=== PATIENT | female | born 1960 | race Caucasian/White ===

== ENCOUNTER 2019-08-09 13:58 | Inpatient (IN) ==
--- NOTE | 2019-08-09 14:20 | PROVIDER DOCUMENTATION ---
HPI-General Adult - General Chief Complaint: SEPSIS ALERT - D Stated Complaint: DR ENRIQUEZ REFERRAL Time Seen by Provider: 08/09/19 14:06 Source: patient Allergies/Adverse Reactions: Patient Allergies Allergy/AdvReac Type Severity Reaction Status Date / Time glyburide [From Glucovance] Allergy Unknown Verified 08/09/19 14:43 lamotrigine [From Lamictal] Allergy Unknown Verified 08/09/19 14:43 levofloxacin [From Levaquin] Allergy Unknown Verified 08/09/19 14:43 codeine AdvReac DIZZINESS Verified 05/15/17 12:53 duloxetine [From Cymbalta] AdvReac CONSTIPATIO Verified 08/09/19 14:43 N gabapentin AdvReac Unknown Verified 08/09/19 14:43 metformin AdvReac NAUSEA Verified 05/15/17 12:53 Home Medications: Home Medication List Medication Instructions Recorded Confirmed Last Taken Type Albuterol Sulfate Inhaler 1 dose INH Q4H PRN PRN 08/09/19 08/09/19 08/09/19 History [Ventolin Hfa] Brexpiprazole [Rexulti] 1 tab PO DAILY 08/09/19 08/09/19 08/09/19 History Crisaborole [Eucrisa] 1 applic TD PRN PRN 08/09/19 08/09/19 Unknown History Dextroamphetamine/Amphetamine 1 tab PO BID 08/09/19 08/09/19 08/09/19 History [Adderall 30 mg Tablet] Fluticasone/Vilanterol [Breo 1 puff INH DAILY 08/09/19 08/09/19 08/09/19 History Ellipta 200-25 Mcg INH] Levothyroxine Sodium 1 tab PO DAILY 08/09/19 08/09/19 08/09/19 History Linaclotide [Linzess] 1 cap PO QAM PRN 08/09/19 08/09/19 Unknown History Liraglutide [Victoza] 1.8 mg SQ DAILY 08/09/19 08/09/19 08/09/19 History Lisinopril 1 tab PO DAILY 08/09/19 08/09/19 08/09/19 History Lorazepam [Ativan] 1 tab PO Q8H PRN 08/09/19 08/09/19 Unknown History Montelukast Sodium 1 - 2 tab PO Q6H PRN PRN 08/09/19 08/09/19 08/09/19 History Omeprazole 1 cap PO DAILY 08/09/19 08/09/19 08/09/19 History Ondansetron Odt [Zofran Odt] 1 tab PO PRN PRN 08/09/19 08/09/19 Unknown History Polyethylene Glycol 3350 [Miralax] 1 dose PO PRN PRN 08/09/19 08/09/19 Unknown H istory Propranolol [Inderal] 1 tab PO Q6H PRN PRN 08/09/19 08/09/19 Unknown History Simvastatin 1 tab PO DAILY 08/09/19 08/09/19 08/09/19 History Testosterone Propionate 1 dose TD DAILY 08/09/19 08/09/19 08/09/19 History Vilazodone [Viibryd] 1 tab PO DAILY 08/09/19 08/09/19 08/09/19 History - History of Present Illness -Gen Adult Nature of Presenting Problems: 58yo female with PMH of COPD and immunocompromise presents with CC of cough and shortness of breath. Onset was three days ago. She denies fever. She reports seeing PCP today who sent her to ER for abnormal CXR. Location of Pain/Injury: reports: chest (cough and shortness of breath.) Pain Radiation: reports: LLQ (Ribs) Severity: reports: moderate Onset/Duration: reports: 3 days ago Timing: reports: still present Context/Activities at Onset: reports: none Modifying Factors: improves with: nothing Review of Systems - Adult - REVIEW OF SYSTEMS - ADULT Constitutional: reports: fatique. denies: fever Eyes: reports: no symptoms reported. denies: eye pain Ears, Nose, Mouth & Throat: reports: no symptoms reported. denies: throat pain Cardiovascular: reports: chest pain Respiratory: reports: cough, shortness of breath. denies: hemoptysis Gastrointestinal: reports: no symptoms reported. denies: abdominal pain Genitourinary: reports: no symptoms reported. denies: flank pain Musculoskeletal: reports: other (rib pain) Integumentary: reports: no symptoms reported Neurological: reports: no symptoms reported. denies: headache/migraines Psychiatric: reports: no symptoms reported. denies: alcohol/drug dependence Endocrine: reports: no symptoms reported Hematologic/Lymphatic: reports: no symptoms reported, other (no bleeding) Allergic/Immunologic: reports: no symptoms reported, other (no swelling) Past History - Adult - PAST MEDICAL HISTORY-ADULT Review of Records: reports: Old Records Reviewed Cardiovascular: reports: HTN, hyperlipidemia Respiratory: reports: COPD Psychiatric: reports: depression Endocrine/Immune: reports: Diabetes, immunosuppression - PRIOR SURGERIES/PROCEDURES Surgical/Procedure History: reports: hysterectomy - IMMUNIZATION STATUS Childhood Immunizations: See Nurse Assessment Flu Vaccine: See Nurse Assessment - FAMILY HISTORY Family History: diabetes - SOCIAL HISTORY Smoking: other (1ppd smoker) Provider spent 3-5 mins advising pt. on dangers of tobacco.: Recomened cessation Substance Use: none/never Alcohol Use Frequency: never Physical Exam-General - PHYSICAL EXAM-ADULT Initial Vital Signs Reviewed: Yes - CONSTITUTIONAL General Appearance: alert, mild distress, thin, lethargic - EYES Eyes: negative: conjuctival exudate, photophobia - HEAD, EARS, NOSE, MOUTH & THROAT HENMT: normocephalic/atraumatic, moist mucous membranes - NECK Neck: non-tender, other (no mass noted) - RESPIRATORY Respiratory: chest non-tender, rales, wheezing (bilaterally) - CARDIOVASCULAR Cardiovascular: regular rate, rhythm, no edema - GASTROINTESTINAL (ABDOMEN) Abdominal Exam: non tender, soft - MUSCULOSKELETAL Extremity: other (no LE edema or pain with palpation) - SKIN Integumentary: normal color, warm/dry - NEUROLOGIC Neurologic: other (mild left eye ptosis- reported chronic, other CN grossly normal.) - PSYCHIATRIC Psych/Mental Status: normal mood/affect, normal thought content, normal thought process Progress - PLAN OF CARE/RESULTS Progress/Plan/Lab Results: Vital Signs - 8 hr 08/09/19 14:00 Temperature 98.6 F Pulse Rate 108 H Respiratory Rate 22 Blood Pressure 145/76 O2 Sat by Pulse Oximetry 85 L Orders Category Date Time Status Cardiac Monitoring DIRECTED Care 08/09/19 14:18 Ordered IV Insertion ORDERED Care 08/09/19 14:18 Ordered Notify MD of + Sepsis Screen NOW Care 08/09/19 14:18 Ordered Notify Physician As Ordered Care 08/09/19 14:18 Ordered CHEST-1 VIEW [RAD] Stat Exams 08/09/19 14:18 Ordered BLOOD CULTURE [BLDCUL] Stat Lab 08/09/19 14:18 Uncollected CBC WITH DIFF [HEME] Stat Lab 08/09/19 14:18 Uncollected CK PROFILE [SP CHEM] Stat Lab 08/09/19 14:18 Uncollected COMPREHENSIVE METABOLIC PANEL [CHEM] Stat Lab 08/09/19 14:18 Uncollected LACTATE, PLASMA [CHEM] Q3H Lab 08/09/19 14:30 Uncollected LACTATE, PLASMA [CHEM] Q3H Lab 08/09/19 17:30 Uncollected LACTATE, PLASMA [CHEM] Q3H Lab 08/09/19 20:30 Uncollected MAGNESIUM [CHEM] Stat Lab 08/09/19 14:18 Uncollected PROTIME WITH INR [COAG] Stat Lab 08/09/19 14:18 Uncollected PTT [COAG] Stat Lab 08/09/19 14:18 Uncollected TROPONIN T Stat Lab 08/09/19 14:18 Uncollected URINALYSIS W/POSS RFLX CULT [URINALYSIS] Stat Lab 08/09/19 14:18 Uncollected Oxygen Device Stat Oth 08/09/19 14:18 Ordered Result Diagrams: 08/09/19 14:53 08/09/19 14:53 - REASSESSMENT Reassessment #1 Status: other (Patient with minimal improvment after breathing treatment. Still requiring 3-4L to remain in the low 90s saturation. Will plan to admit for COPDE, will start steroids and abx. Discussed with hospitalist team who have accepted the patient.) Departure - Departure Date of Disposition Decision: 08/09/19 Time of Disposition Decision: 15:46 DIAGNOSIS: COPD exacerbation Disposition: ADMITTED INPATIENT 09 Certified Medical Emergency: Emergent Condition: Fair Referrals and Follow-Ups: Kannan Enriquez MD [Primary Care Provider] - - Critical Care Note This patient required my direct & personal management of CC.: No Attestation - Physician/ TAMMY Attestation Patient care was provided by Advanced Practice Provider:: No The physician spent face to face time with patient:: Yes Advanced Practice Provider documentation review:: Supervising physician onsite and consulted in the evaluation and care of this patient. The physician did have a face to face encounter with the patient.
[2019-08-09] MEDS ORDERED: NS 1,000 ML IV ONE (14:25)
[2019-08-09] MEDS ORDERED: DUONEB (A & A) INH ONE (14:25)
--- NOTE | 2019-08-09 14:35 | Diag Imaging Result Doc PS360 ---
CHEST-1 VIEW - 08/09/2019 INDICATION: Shortness of breath COMPARISON: 05/15/2017 FINDINGS: Stable somewhat hyperexpanded lungs suggesting COPD. There are some ill-defined increased markings in the lung bases suggesting bronchitis or mild pulmonary fibrosis. The appearance is nonspecific. Heart size and pulmonary vascularity is normal. No dense consolidations. No large pleural effusion. IMPRESSION: Nonspecific findings. Electronically signed by Oleksandr Ko 08/09/2019 2:32 PM
[2019-08-09 15:13] LABS: BASO# 0.03 X1000 (0.0-0.2); BASO% 0.2 % (0.0-0.8); EOS# 0.04 X1000 (0.0-0.7); EOS% 0.3 % (0.0-10.0); HEMATOCRIT 45.4 % (37.0-47.0); HEMOGLOBIN 14.4 g/dL (12.0-16.0); IMM GRAN# 0.03 X1000 (0.0-0.04); IMM GRAN% 0.2 % (0.0-0.5); LYMPH# 1.61 X1000 (1.2-3.4); LYMPH% 11.7 % (20.5-51.1); MCH 26.1 PG (27-31); MCHC 31.7 g/dL (33-37); MCV 82.4 FL (81-99); MONO% 7.2 % (1.7-9.3); MPV 10.6 FL (7.4-10.4); NEUT# 11.09 X1000 (1.4-6.5); NEUT% 80.4 % (42.2-75.2); PLT 394 X1000 (130-400); RBC 5.51 XMIL (4.2-5.4); RDW 14.5 % (11.5-14.5)
[2019-08-09 15:16] LABS: URINE SOURCE CLEAN CATCH
[2019-08-09 15:18] LABS: INR 0.97
[2019-08-09 15:19] LABS: PTT 29.9 Seconds (22.3-41.8)
[2019-08-09 15:21] LABS: BILIRUBIN URINE NEGATIVE (NEGATIVE); BLOOD URINE NEGATIVE (NEGATIVE); COLOR YELLOW; GLUCOSE URINE >1000 mg/dL (NEGATIVE); KETONE URINE TRACE mg/dL (NEGATIVE); LEUKOCYTES URINE NEGATIVE (NEGATIVE); NITRITE URINE NEGATIVE (NEGATIVE); PH URINE 6.5; PROTEIN URINE 30 mg/dL (NEGATIVE); SP GRAVITY URINE 1.033; TURBIDITY URINE CLEAR (CLEAR); UR EPITHELIAL CELLS <10 /HPF (<10); URINE BACTERIA NEGATIVE /HPF; URINE RBC <10 /HPF (<10); URINE WBC <10 /HPF (<10); UROBILINOGEN URINE 2 mg/dL (NORMAL)
[2019-08-09 15:38] LABS: AGAP 13; ALB/GLOB RATIO 1.4; ALKALINE PHOSPHATASE 111 U/L (32-104); BUN 9 mg/dL (8-22); CALCIUM 8.8 mg/dL (8.8-10.2); CHLORIDE 96 mmol/L (98-107); CK PROFILE 140 U/L (24-173); COSMO 280; CREATININE 0.7 mg/dL (0.5-0.9); ESTIMATED GFR > 60; GLUCOSE 269 mg/dL (70-104); GOT 17 U/L (10-30); GPT 20 U/L (10-36); POTASSIUM 4.9 mmol/L (3.5-5.1); SODIUM 136 mmol/L (136-145); TCO2 27 mmol/L (25-35); TOTAL BILIRUBIN 0.24 mg/dL (0.20-1.00); TOTAL PROTEIN 6.9 g/dL (6.3-8.3)
[2019-08-09] MEDS ORDERED: PREDNISONE PO ONE (15:40)
[2019-08-09] MEDS ORDERED: ZITHROMAX 500 MG/NS 500 MG/250 ML IVPB IV ONE (15:40)
--- NOTE | 2019-08-09 16:11 | EKG Report ---
Test Performed on : 08/09/2019 2:10:23 PM Test Reason : cp Blood Pressure : / mmHG Vent. Rate : 101 BPM Atrial Rate : 101 BPM P-R Int : 142 ms QRS Dur : 078 ms QT Int : 330 ms P-R-T Axes : 000 145 148 degrees QTc Int : 427 ms Sinus tachycardia. Right axis deviation Nonspecific ST and T wave abnormality Abnormal ECG When compared with ECG of 14-APR-2012 16:25, QRS axis shifted right Unconfirmed Result
--- NOTE | 2019-08-09 18:31 | HISTORY AND PHYSICAL ---
CHIEF COMPLAINT: Shortness of breath. PRIMARY CARE PHYSICIAN: Dr. Kannan Enriquez. HISTORY OF PRESENT ILLNESS: This is a 58-year-old female, with past medical history of diabetes, hypertension, hyperlipidemia, and depression, who was sent to the emergency department by his primary care physician because of shortness of breath. The patient reports that she has been having cough with greenish secretion during the last 3 days along with general malaise, but no fever. She denies any sick contacts. She went to see her primary care primary care physician today who recommended to send to the emergency department. Here her x-ray was unremarkable, but there was elevation of the white cell count to 13.8 and patient clinically feeling short of breath, requiring oxygen supplementation, so she is going to be admitted for further evaluation and treatment. PAST MEDICAL HISTORY: 1. Diabetes mellitus type 2, insulin dependent. 2. Hypertension. 3. Hyperlipidemia. 4. Depression and anxiety. 5. Immunosuppression. Patient has been seen initially by Dr. Jha in [place] and now she is being followed by Dr. Boss, and she receives IVIG on a monthly basis. 6. History of MRSA pneumonia many years ago. 7. COPD, not on any home oxygen. PAST SURGICAL HISTORY: Hysterectomy. ALLERGIES: Patient mostly has a reaction to Glyburide, lamotrigine, levofloxacin, and duloxetine. SOCIAL HISTORY: She denies drinking alcohol. She smokes 1 pack per day for the last 30 to 40 years. Patient lives alone. REVIEW OF SYSTEMS: 11 systems were reviewed and all symptoms are related to H and P. PHYSICAL EXAMINATION: VITAL SIGNS: Temperature 98.6 degrees, heart rate 108, respiratory rate 22, blood pressure 145/76, O2 saturation 95% on room air. GENERAL: This is a chronically ill-appearing, 58-year-old female lying in bed, in no acute distress. HEENT: Head is normocephalic, atraumatic. Mucous membranes are dry. Pupils equal, round, reactive to light and accommodation. Anicteric sclerae. Pale conjunctivae. NECK: No JVD noted. No carotid bruits. No lymphadenopathy. No thyromegaly. CARDIOVASCULAR: S1, S2 heard. No murmurs, gallops, or rubs. Regular rate and rhythm. RESPIRATORY: Decreased breath sounds globally with wheezing all over both pulmonary keith. ABDOMEN: Soft. Nontender to palpation. Bowel sounds present. No organomegaly. EXTREMITIES: No clubbing, cyanosis, or edema. Peripheral pulses present in both legs. NEUROLOGICAL: The patient is alert and oriented x3. Moves 4 extremities. LABORATORY DATA: White cell count 13.9, hemoglobin 14.4, hematocrit 45.4, platelets 394,000. X-RAY: Nonspecific findings. The lungs showed hyperexpanded. There are some ill-defined increased markings in the lung bases suggesting bronchitis or mild pulmonary fibrosis. ASSESSMENT AND PLAN: 1. Acute hypoxemic respiratory failure secondary to chronic obstructive pulmonary disease exacerbation. The patient is going to be started on intravenous antibiotics, intravenous steroids, DuoNeb every 4 hours as scheduled. Will do pulmonary toilet. Will monitor this patient closely. 2. Diabetes mellitus. We will start this patient on Humalog sliding scale doses. Will check hemoglobin A1c and lipid panel. 3. Hypertension. Blood pressure is under control. We will continue with the same medications. 4. History of depression. We will continue home medications. 5. Disposition. We will continue to monitor this patient closely. cc: Satnam Vega MD
[2019-08-09] MEDS ORDERED: TYLENOL PO PRN (18:41)
[2019-08-09] MEDS ORDERED: LINZESS PO PRN (18:41)
[2019-08-09] MEDS ORDERED: ATIVAN PO PRN (18:41)
[2019-08-09] MEDS ORDERED: ZOFRAN IV PRN (18:41)
[2019-08-09] MEDS: DUONEB (A & A) INH SCH ×2 (19:49→23:05)
[2019-08-09] MEDS: NS 1,000 ML IV SCH (20:26)
[2019-08-09] MEDS: TESSALON PO PRN (20:27)
[2019-08-09] MEDS: LOVENOX SUBQ SCH (20:27)
[2019-08-09] MEDS: ZOSYN 3.375 GM in NS 50 ML IV SCH (20:27)
[2019-08-09] MEDS: SINGULAIR PO SCH (20:48)
[2019-08-09] MEDS: HUMALOG SUBQ SCH (20:48)
[2019-08-09] MEDS: SOLU-MEDROL IV SCH (21:23)
[2019-08-10] MEDS: ZOSYN 3.375 GM in NS 50 ML IV SCH ×4 (02:39→20:30)
[2019-08-10] MEDS: DUONEB (A & A) INH SCH ×6 (03:29→22:33)
[2019-08-10 05:41] LABS: BASO# 0.01 X1000 (0.0-0.2); BASO% 0.1 % (0.0-0.8); EOS# 0.01 X1000 (0.0-0.7); EOS% 0.1 % (0.0-10.0); HEMATOCRIT 42.7 % (37.0-47.0); HEMOGLOBIN 13.5 g/dL (12.0-16.0); IMM GRAN# 0.02 X1000 (0.0-0.04); IMM GRAN% 0.2 % (0.0-0.5); LYMPH# 0.84 X1000 (1.2-3.4); LYMPH% 9.4 % (20.5-51.1); MCH 26.5 PG (27-31); MCHC 31.6 g/dL (33-37); MCV 83.7 FL (81-99); MONO# 0.12 X1000 (0.11-0.59); MONO% 1.3 % (1.7-9.3); MPV 10.4 FL (7.4-10.4); NEUT# 7.95 X1000 (1.4-6.5); NEUT% 88.9 % (42.2-75.2); PLT 389 X1000 (130-400); RDW 14.7 % (11.5-14.5); WBC 8.95 X1000 (4.8-10.8)
[2019-08-10 05:58] LABS: HEMOGLOBIN A1C 10.9 % (4.8-6.0)
[2019-08-10 06:09] LABS: AGAP 10; BUN 8 mg/dL (8-22); CHLORIDE 102 mmol/L (98-107); COSMO 288; CREATININE 0.7 mg/dL (0.5-0.9); ESTIMATED GFR > 60; GLUCOSE 325 mg/dL (70-104); POTASSIUM 4.6 mmol/L (3.5-5.1); SODIUM 139 mmol/L (136-145); TCO2 27 mmol/L (25-35)
[2019-08-10] MEDS: SOLU-MEDROL IV SCH ×3 (06:25→21:49)
[2019-08-10 06:26] LABS: CHOLESTEROL 124 mg/dL (0-200); HDL 53 mg/dL (45-65); LDL 55 mg/dL; TRIGLYCERIDES 79 mg/dL (35-135); VLDL 16 mg/dL
[2019-08-10] MEDS: HUMALOG SUBQ SCH ×4 (06:26→21:01)
[2019-08-10] MEDS: NS 1,000 ML IV SCH ×2 (06:26→14:53)
[2019-08-10 08:12] LABS: BANDS 2 % (0-1); LYMPHS 6 % (21-51); SEGS 92 % (42-75)
--- NOTE | 2019-08-10 08:17 | Diag Imaging Result Doc PS360 ---
EXAM: CT THORAX W/CONTRAST 08/10/2019 HISTORY: pneumonia TECHNIQUE: This exam was performed using automated exposure control, adjustment of mA or kV according to patient size, and/or use of iterative reconstruction technique. COMMENT: The current examination is compared with the previous study of 05/22/2017. The aorta is normal in caliber and there is no evidence of dissection. There is an 11 mm aorticopulmonary window node which has not changed appreciably since the previous study. There is a precarinal node which is also apparently stable in appearance measuring over 15 mm. There are coronary calcifications. There are no abnormal fluid collections. The liver is hypodense suggesting fatty change. The regional skeleton appears to be intact. There are coarse opacities in both lung apices similar in appearance to the previous study. There is linear opacity and a nodule present on image 33 in the right upper lobe which was also present at the time the previous study. Some platelike opacity is present in the left upper lobe on image 35 which was not clearly present previously. There are patchy groundglass opacities in the lingula particularly on image 55 which was not the case previously. There is a pleural-based groundglass opacity in the left lower lobe on image 72 which was not present previously. Similar opacities are present in the left lower lobe on image 88 and to a lesser extent there are similar opacities in the right lower lobe and middle lobe. IMPRESSION: Old granulomatous fibrotic changes with new patchy groundglass opacities mostly in the left upper and lower lobes. This is consistent with bronchopneumonia. Follow-up is recommended to ensure the resolution following treatment. Electronically signed by Maldonado Shay 08/10/2019 8:15 AM
[2019-08-10] MEDS: BREO ELLIPTA 200/25 MCG INH INH SCH (08:28)
[2019-08-10] MEDS: VIIBRYD PO SCH (08:41)
[2019-08-10] MEDS: PRILOSEC PO SCH (08:41)
[2019-08-10] MEDS: ZOCOR PO SCH (08:42)
[2019-08-10] MEDS: SYNTHROID PO SCH (08:42)
[2019-08-10] MEDS: PRINIVIL PO SCH (08:42)
[2019-08-10] MEDS: SINGULAIR PO SCH (08:42)
[2019-08-10] MEDS ORDERED: NON-FORMULARY MED (Omeprazole 1 CAP) PO SCH (09:00)
[2019-08-10] MEDS: TESSALON PO PRN ×2 (10:09→14:53)
[2019-08-10] MEDS: ADDERALL PO SCH ×2 (10:09→21:00)
[2019-08-10] MEDS: BREXPIPRAZOLE PO SCH (10:54)
[2019-08-10] MEDS: NICODERM PATCH TD PRN (11:02)
[2019-08-10] MEDS ORDERED: LANTUS INSULIN SUBQ SCH (13:30)
[2019-08-10] MEDS ORDERED: VANCOMYCIN IV PER PHARMACY MISC SCH (13:30)
--- NOTE | 2019-08-10 14:13 | PROGRESS NOTE ---
DATE: 08/10/2019 SUBJECTIVE: The patient reports breathing better. Denies any fever or chills. OBJECTIVE: Vital Signs: Temperature 98.9 degrees, heart rate 115, respiratory rate 17, blood pressure 150/72, O2 saturation 94% on 2 L nasal cannula. General: This is a 58-year-old female lying in bed, in no acute distress. Cardiovascular: S1, S2 heard. No murmurs, gallops, or rubs. Regular rate and rhythm. Respiratory: Decreased breath sounds globally with coarse breath sounds and wheezing noted in both pulmonary bases. Patient is not using any accessory muscles or having work of breathing. Abdomen: Soft, nontender to palpation. Bowel sounds present. No organomegaly. Extremities: No clubbing, cyanosis, or edema. Peripheral pulses present in both legs. Neurological: Patient alert oriented x3. Moves 4 extremities. LABORATORY DATA: White cell count 8.95, hemoglobin 13.5, hematocrit 42.7, platelets 389,000. BMP shows glucose 325. ASSESSMENT 1. Left upper and lower bronchopneumonia. 2. Acute hypoxemic respiratory failure secondary to condition #1. 3. Diabetes mellitus type 2. 4. Hypertension. 5. History of depression. PLAN: At this point, the patient is feeling better. We found that this patient has left upper lower lobe pneumonia. The patient has been started on Zosyn just today and we will add vancomycin to her current treatment. White cell count is back to normal. Patient is not spiking any fever. We will continue with the same management. For diabetes mellitus type 2. The patient's glucose is very elevated. We are going to restart Tresiba and Victoza for this patient and sliding scale insulin as needed. Hemoglobin A1c is very elevated. For hypertension blood pressure is under control. We will continue with same management. Disposition: We will continue to monitor this patient closely. cc: Satnam Vega MD [facility]ENTER[facility]
[2019-08-10] MEDS ORDERED: VANCOMYCIN 2,000 MG in NS 500 ML IV ONE (15:00)
[2019-08-10] MEDS: LOVENOX SUBQ SCH (21:01)
[2019-08-11] MEDS: ZOSYN 3.375 GM in NS 50 ML IV SCH ×4 (01:31→19:52)
[2019-08-11] MEDS: NS 1,000 ML IV SCH ×3 (02:03→11:31)
[2019-08-11] MEDS: DUONEB (A & A) INH SCH ×5 (03:12→19:36)
[2019-08-11 05:14] LABS: HEMATOCRIT 40.4 % (37.0-47.0); HEMOGLOBIN 12.6 g/dL (12.0-16.0); IMM GRAN# 0.02 X1000 (0.0-0.04); IMM GRAN% 0.2 % (0.0-0.5); MCH 26.1 PG (27-31); MCHC 31.2 g/dL (33-37); MCV 83.6 FL (81-99); MONO% 3.6 % (1.7-9.3); MPV 10.6 FL (7.4-10.4); NEUT# 9.93 X1000 (1.4-6.5); NEUT% 88.2 % (42.2-75.2); PLT 401 X1000 (130-400); RBC 4.83 XMIL (4.2-5.4); RDW 14.7 % (11.5-14.5); WBC 11.25 X1000 (4.8-10.8)
[2019-08-11] MEDS: SOLU-MEDROL IV SCH (05:14)
[2019-08-11 05:34] LABS: ESTIMATED GFR > 60
[2019-08-11] MEDS: VANCOMYCIN 1,000 MG in NS 250 ML IV SCH ×3 (05:41→15:28)
[2019-08-11 05:47] LABS: AGAP 11; BUN 10 mg/dL (8-22); CALCIUM 8.7 mg/dL (8.8-10.2); CHLORIDE 100 mmol/L (98-107); COSMO 286; CREATININE 0.7 mg/dL (0.5-0.9); POTASSIUM 4.8 mmol/L (3.5-5.1); SODIUM 135 mmol/L (136-145); TCO2 24 mmol/L (25-35)
[2019-08-11] MEDS: ADDERALL PO SCH ×3 (05:58→12:26)
[2019-08-11 05:59] LABS: GLUCOSE 395 mg/dL (70-104)
[2019-08-11] MEDS: HUMALOG SUBQ SCH ×4 (06:00→20:50)
[2019-08-11] MEDS: BREO ELLIPTA 200/25 MCG INH INH SCH (07:49)
[2019-08-11] MEDS: BREXPIPRAZOLE PO SCH (09:31)
[2019-08-11] MEDS: VIIBRYD PO SCH (09:31)
[2019-08-11] MEDS: PRINIVIL PO SCH (09:31)
[2019-08-11] MEDS: PRILOSEC PO SCH (09:31)
[2019-08-11] MEDS: SINGULAIR PO SCH (09:31)
[2019-08-11] MEDS: SYNTHROID PO SCH (09:31)
[2019-08-11] MEDS: ZOCOR PO SCH (09:39)
[2019-08-11] MEDS: VICTOZA SUBQ SCH (12:28)
[2019-08-11] MEDS ORDERED: TRESIBA FLEXTOUCH U-200 SUBQ SCH (12:30)
[2019-08-11] MEDS: TRESIBA FLEXTOUCH U-200 SUBQ SCH (12:30)
--- NOTE | 2019-08-11 12:57 | PROGRESS NOTE ---
DATE: 08/11/2019 SUBJECTIVE: Patient reports breathing better. Denies any fever or chills. OBJECTIVE: Vital Signs: Temperature is 97.3 degrees, heart rate is 98, respiratory rate 16, blood pressure 155/89, O2 saturation 94% on 2 L nasal cannula. General Examination: This is a 58- year-old, female lying in bed, in no acute distress. Cardiovascular Examination: S1 and S2 heard. No murmurs, gallops, or rubs. Regular rate and rhythm. Respiratory Examination: Decreased breath sounds globally with still wheezing in both pulmonary keith. Patient is not using any accessory muscles or having work of breathing. Abdomen: Soft, nontender to palpation. Bowel sounds present. No organomegaly. Extremities: No clubbing, cyanosis, or edema. Peripheral pulses present in both legs. Neurological Examination: The patient is alert and oriented x3. Moves 4 extremities. Laboratory Data: Reviewed. ASSESSMENT: 1. Acute hypoxemic respiratory failure. 2. Left upper and lower lobe bronchopneumonia. 3. Diabetes mellitus type 2. 4. Hypertension. 5. History of depression. PLAN: At this point, the patient feels better but still having significant wheezing. We will continue with vancomycin and Zosyn. We will continue with breathing treatments. Blood cultures are so far negative at this point. We will decrease the doses of intravenous steroids. Regarding diabetes mellitus type 2, we are going to restart Tresiba and Victoza considering that the blood sugars are very elevated because of IV steroids. For hypertension, we will continue with the same management, home medications. For history of depression, we will continue with home medications as well. cc: Satnam Vega MD
[2019-08-11] MEDS: NICODERM PATCH TD PRN (15:36)
[2019-08-11] MEDS: LOVENOX SUBQ SCH (18:21)
[2019-08-12] MEDS: DUONEB (A & A) INH SCH ×7 (00:50→23:30)
[2019-08-12] MEDS: ZOSYN 3.375 GM in NS 50 ML IV SCH ×4 (01:30→20:54)
[2019-08-12] MEDS: VANCOMYCIN 1,000 MG in NS 250 ML IV SCH (02:01)
[2019-08-12 05:22] LABS: BASO# 0.02 X1000 (0.0-0.2); BASO% 0.2 % (0.0-0.8); EOS# 0.02 X1000 (0.0-0.7); EOS% 0.2 % (0.0-10.0); HEMATOCRIT 39.8 % (37.0-47.0); HEMOGLOBIN 12.5 g/dL (12.0-16.0); IMM GRAN# 0.04 X1000 (0.0-0.04); IMM GRAN% 0.3 % (0.0-0.5); LYMPH% 36.2 % (20.5-51.1); MCH 26.2 PG (27-31); MCHC 31.4 g/dL (33-37); MCV 83.3 FL (81-99); MONO# 1.05 X1000 (0.11-0.59); MONO% 8.4 % (1.7-9.3); MPV 10.3 FL (7.4-10.4); NEUT# 6.81 X1000 (1.4-6.5); NEUT% 54.7 % (42.2-75.2); PLT 391 X1000 (130-400); RBC 4.78 XMIL (4.2-5.4); RDW 14.5 % (11.5-14.5); WBC 12.44 X1000 (4.8-10.8)
[2019-08-12 06:01] LABS: AGAP 8; BUN 10 mg/dL (8-22); CALCIUM 8.6 mg/dL (8.8-10.2); CHLORIDE 103 mmol/L (98-107); COSMO 279; CREATININE 0.7 mg/dL (0.5-0.9); ESTIMATED GFR > 60; GLUCOSE 78 mg/dL (70-104); POTASSIUM 3.5 mmol/L (3.5-5.1); SODIUM 141 mmol/L (136-145); TCO2 30 mmol/L (25-35)
[2019-08-12] MEDS: HUMALOG SUBQ SCH ×4 (06:23→21:01)
[2019-08-12] MEDS: BREO ELLIPTA 200/25 MCG INH INH SCH (07:47)
[2019-08-12] MEDS: NS 1,000 ML IV SCH ×5 (08:31→17:16)
[2019-08-12] MEDS: ZOCOR PO SCH (08:49)
[2019-08-12] MEDS: ADDERALL PO SCH ×2 (08:49→11:48)
[2019-08-12] MEDS: SINGULAIR PO SCH (08:49)
[2019-08-12] MEDS: PRILOSEC PO SCH (08:49)
[2019-08-12] MEDS: PRINIVIL PO SCH (08:50)
[2019-08-12] MEDS: SOLU-MEDROL IV SCH (08:50)
[2019-08-12] MEDS: VIIBRYD PO SCH (09:16)
[2019-08-12] MEDS: BREXPIPRAZOLE PO SCH (09:16)
[2019-08-12] MEDS: SYNTHROID PO SCH (09:16)
[2019-08-12] MEDS: VICTOZA SUBQ SCH (09:17)
[2019-08-12] MEDS: TRESIBA FLEXTOUCH U-200 SUBQ SCH (09:18)
[2019-08-12] MEDS: MORPHINE IV PRN ×2 (12:50→17:16)
--- NOTE | 2019-08-12 14:00 | PROGRESS NOTE ---
DATE: 08/12/2019 SUBJECTIVE: Patient reports coughing a lot. She had excruciating pain in the left side of her chest. Denies any fever or chills. She reports that she is breathing better. OBJECTIVE: Vital Signs: Temperature 97.5 degrees, heart rate 86, respiratory rate 16, blood pressure 147/85, O2 saturation 97% 2 L nasal cannula General: This is a 58-year-old female lying in bed, in no acute distress. Cardiovascular: S1, S2 heard. No murmurs, gallops, or rubs. Regular rate and rhythm. Respiratory: Decreased breath sounds globally, still wheezing in both pulmonary keith. Patient not using any accessory muscles or having work of breathing. Abdomen: Soft, nontender to palpation. Bowel sounds present. No organomegaly. Extremities: No clubbing, cyanosis, or edema. Peripheral pulses present in both legs. Neurological: The patient is alert and oriented x3. Moves 4 extremities. LABORATORY DATA: Reviewed. ASSESSMENT AND PLAN: 1. Acute hypoxemic respiratory failure. 2. Left upper and lower bronchopneumonia. 3. Diabetes mellitus type 2. 4. Hypertension. 5. Depression. PLAN: 1. At this point, the patient is complaining of severe pain in the left side of her lung. We will provide pain medications for that. We will continue with current antibiotic therapy. She was requiring 2 L of oxygen by nasal cannula. We will try to wean off of oxygen. She is feeling better. 2. For diabetes mellitus type 2. We have restarted Victoza and Tresiba and her blood sugars are much better. 3. Blood pressure is also under control I think she is feeling better with the pain under control. All labs are okay. 4. I think we will discharge her tomorrow. cc: Satnam Vega MD [facility]
[2019-08-12] MEDS: NICODERM PATCH TD PRN (14:58)
[2019-08-12] MEDS: VANCOMYCIN 1,500 MG in NS 250 ML IV SCH (16:07)
[2019-08-12] MEDS: LOVENOX SUBQ SCH (18:19)
[2019-08-13] MEDS: MORPHINE IV PRN ×3 (01:14→10:33)
[2019-08-13] MEDS: ZOSYN 3.375 GM in NS 50 ML IV SCH ×2 (01:46→09:06)
[2019-08-13] MEDS: NS 1,000 ML IV SCH ×2 (01:52→13:12)
[2019-08-13] MEDS: DUONEB (A & A) INH SCH ×4 (03:12→15:37)
[2019-08-13] MEDS: VANCOMYCIN 1,500 MG in NS 250 ML IV SCH (04:05)
[2019-08-13] MEDS ORDERED: INSULIN PEN NEEDLES ONE (04:20)
[2019-08-13 05:54] LABS: BASO# 0.02 X1000 (0.0-0.2); BASO% 0.2 % (0.0-0.8); EOS# 0.03 X1000 (0.0-0.7); EOS% 0.3 % (0.0-10.0); HEMATOCRIT 40.2 % (37.0-47.0); HEMOGLOBIN 12.5 g/dL (12.0-16.0); IMM GRAN# 0.02 X1000 (0.0-0.04); IMM GRAN% 0.2 % (0.0-0.5); LYMPH# 4.69 X1000 (1.2-3.4); LYMPH% 40.9 % (20.5-51.1); MCH 26.1 PG (27-31); MCHC 31.1 g/dL (33-37); MCV 83.9 FL (81-99); MONO# 1.13 X1000 (0.11-0.59); MONO% 9.9 % (1.7-9.3); MPV 10.1 FL (7.4-10.4); NEUT# 5.57 X1000 (1.4-6.5); NEUT% 48.5 % (42.2-75.2); PLT 380 X1000 (130-400); RBC 4.79 XMIL (4.2-5.4); RDW 14.5 % (11.5-14.5); WBC 11.46 X1000 (4.8-10.8)
[2019-08-13] MEDS: HUMALOG SUBQ SCH ×2 (06:49→12:15)
[2019-08-13] MEDS: BREO ELLIPTA 200/25 MCG INH INH SCH (07:45)
--- NOTE | 2019-08-13 08:00 | Diag Imaging Result Doc PS360 ---
EXAM: CT LUMBAR SPINE W/O CONTRAST - 08/13/2019 HISTORY: severe lumbar pain TECHNIQUE: CT lumbar spine without contrast COMPARISON: None. FINDINGS: There is mild spinal stenosis at L4-5 secondary to broad posterior disc protrusion in combination with facet and ligamentum flavum hypertrophy. There is slight narrowing of the spinal canal at L3-4 by facet and ligamentum flavum hypertrophy. There is no fracture or subluxation identified. There is no destructive or sclerotic lesion identified. IMPRESSION: Degenerative changes with mild spinal stenosis at L4-5. No evidence of fracture or subluxation. This exam was performed using automated exposure control, adjustment of mA or kV according to patient size, and/or use of iterative reconstruction technique. Electronically signed by Pete Angelo 08/13/2019 7:58 AM
[2019-08-13 08:29] VITALS: BP 144/72
[2019-08-13] MEDS: ZOCOR PO SCH (09:07)
[2019-08-13] MEDS: PRILOSEC PO SCH (09:07)
[2019-08-13] MEDS: PRINIVIL PO SCH (09:07)
[2019-08-13] MEDS: SINGULAIR PO SCH (09:07)
[2019-08-13] MEDS: ADDERALL PO SCH ×2 (09:07→12:44)
[2019-08-13] MEDS: BREXPIPRAZOLE PO SCH (09:08)
[2019-08-13] MEDS: VIIBRYD PO SCH (09:08)
[2019-08-13] MEDS: SYNTHROID PO SCH (09:09)
[2019-08-13] MEDS: VICTOZA SUBQ SCH (09:09)
[2019-08-13] MEDS: SOLU-MEDROL IV SCH (09:09)
[2019-08-13] MEDS: TRESIBA FLEXTOUCH U-200 SUBQ SCH (09:11)
[2019-08-13] MEDS: ROBAXIN PO SCH ×2 (09:12→12:44)
--- NOTE | 2019-08-13 17:35 | DISCHARGE SUMMARY ---
ADMISSION DATE: 08/09/2019 DISCHARGE DATE: 08/13/2019 DIAGNOSES: 1. Acute hypoxemic respiratory failure secondary to chronic obstructive pulmonary disease exacerbation, resolved. 2. Diabetes mellitus. 3. Hypertension. 4. History of depression. 5. Left upper and left lower bronchopneumonia. DIAGNOSTICS: 1. Chest x-ray reveals nonspecific findings stable somewhat hyperexpanded lungs suggesting COPD. Heart size and pulmonary vascularity are normal. No dense consolidation. No large pleural effusion. 2. CT of the chest reveals old granulomatous fibrotic changes with new patchy ground-glass opacities mostly in the left upper and lower lobes consistent with bronchopneumonia. 3. Lumbar spine CT revealed degenerative changes with mild spinal stenosis at L4-L5. 4. Microbiology. Blood cultures x2 revealed no growth after 48 hours. 5. Sputum culture revealed normal [place]. HOSPITAL COURSE: Ms Craig presented to the emergency room complaining of shortness of breath along with 3 days of general malaise. She was found to have right upper and lower bronchopneumonia as well as to be in acute hypoxemic respiratory failure with COPD exacerbation. She was treated with DuoNeb, steroids to taper, supplemental oxygen, antibiotic coverage of vancomycin and Zosyn initially and she will be discharged on Omnicef. We continued her home medications. Blood sugars were primarily in the 240s to 340 range. She was initially placed on nasal cannula. Thankfully this has been discontinued and her room air saturations are staying 95 to 97 percent. DISCHARGE PHYSICAL EXAM: Vital Signs: Blood pressure is 144/72 with a heart rate of 90, respirations are 16, temperature 98.2 degrees oral with room air saturations 95 to 98 percent. Cardiovascular: Regular rate and rhythm. S1 and S2 appreciated. Pulmonary: Breath sounds with some faint expiratory wheezes. Chest rises and falls symmetric respiration. Chest wall is nontender palpation. Gastrointestinal: Abdomen soft, nontender, nondistended. Bowel sounds in all 4 quadrants. : No CVA or suprapubic tenderness. Neurologic: She is alert, oriented x3. Skin is warm and dry. DISCHARGE MEDICATIONS: Inderal 20 mg p.o. q.6 hours p.r.n., MiraLAX 17 g p.o. p.r.n. constipation, omeprazole 40 mg p.o. daily, Robaxin 750 p.o. t.i.d., Tresiba 80 units subcu q.a.m., [place] 5 q.4 hours p.r.n. Eucrisa 60 g ointment 1 applicator as directed, Omnicef 300 mg p.o. b.i.d. for 10 days, Ventolin inhaler 1 puff q.4 hours p.r.n., Viibryd 40 mg p.o. daily, simvastatin 40 mg p.o. daily, Ativan p.o. q.8 hours p.r.n., lisinopril 5 mg p.o. daily, Victoza 1.8 mg subcu daily, Linzess 290 mcg capsule daily, levothyroxine 125 mcg daily, Breo Ellipta 200/25 1 puff daily, Adderall 30 mg p.o. b.i.d., Rexulti 2 mg p.o. daily. FOLLOWUP: Dr. Kannan Enriquez to call Thursday to schedule an appointment to be seen in the next 1 to 2 weeks sooner if needed. She has been instructed to call to be seen sooner or return to the ER for any syncope, dizziness, chest pain, palpitations, any shortness of breath, cough, fever, chills, temperature greater than 101, any nausea, vomiting, diarrhea, constipation, black or bloody vomitus or stools, hematuria, dysuria, frequency, urgency. She is being discharged in stable condition with family members. TIME SPENT: Greater than 30 minutes. Dictated by YVON Avitia for Satnam Vega MD Addendum: Patient seen and examined by myself. Agree with YVON note. It reflects my assessment and plan. Patient is being discharged from hospital to home in stable condition. Will be seen by PCP in a week. cc: YVON Avitia MD [facility]
== END 2019-08-13 13:30 | disposition home or self-care (01) | DRG 190 ==
LOC: ED 13:58 → 1N 18:30
PROVIDERS: ATTEND Internal Medicine